=== PATIENT | female | born 1995 | race Caucasian/White ===

== ENCOUNTER → 2017-03-16 | Outpatient (REF) | payer OTHER | LOC: M LAB REF 18:42 | DX: Z34.83 Encounter for supervision of other normal pregnancy, third trimester (principal) ==

== ENCOUNTER 2017-04-04 21:36 | Inpatient (IN) | payer OTHER ==
[2017-04-05 00:22] LABS: BASO % 0.2 % (0.0-1.0); EOS # 0.1 10^3/uL (0.0-0.50); EOS % 1.1 % (0.0-3.0); HEMATOCRIT 27.8 % (36.0-47.0); HEMOGLOBIN 8.3 g/dl (12.0-16.0); IMMATURE GRANULOCYTE # 0.2 10^3/uL (0-0); IMMATURE GRANULOCYTE % 1.4 % (0-0); LYMPH # 1.8 10^3/uL (1.5-6.5); LYMPH % 13.9 % (24.0-44.0); MEAN CORPUSCULAR HEMOGLOBIN 21.7 pg (27.0-33.0); MEAN CORPUSCULAR HGB CONC 29.9 g/dl (32.0-36.5); MEAN CORPUSCULAR VOLUME 72.8 fl (80.0-96.0); MONO # 0.8 10^3/uL (0.0-0.8); MONO % 5.9 % (0.0-5.0); NEUTROPHILS % 77.5 % (36.0-66.0); PLATELET COUNT, AUTOMATED 344 10^3/uL (150-450); RED BLOOD COUNT 3.82 10^6/uL (4.00-5.40); RED CELL DISTRIBUTION WIDTH 16.7 % (11.5-14.5); WHITE BLOOD COUNT 12.9 10^3/uL (4.0-10.0)
[2017-04-05 00:30] LABS: CONTROL LINE INT CTR LINE PRESENT; HIV SCRN NEGATIVE (NEGATIVE); HIV SCRN1 NEGATIVE (NEGATIVE)
[2017-04-05] MEDS: LR 1,000 ML IV ×2 (00:36→14:35)
[2017-04-05] MEDS: OXYTOCIN DRIP 30 UNITS in APPROPRIATE DILUENT 1 EA IV ×2 (00:36→19:48)
[2017-04-05 01:09] LABS: HBSAG L&D NEGATIVE (NEGATIVE)
[2017-04-05 01:43] LABS: AMPHETAMINES URINE REFLEX NEGATIVE (NEGATIVE); BARBITURATES URINE REFLEX NEGATIVE (NEGATIVE); BENZODIAZEPINES URINE REFLEX NEGATIVE (NEGATIVE); CANNABINOIDS URINE REFLEX NEGATIVE (NEGATIVE); COCAINE METABOLITE URINE REFLE NEGATIVE (NEGATIVE); METHADONE URINE REFLEX NEGATIVE (NEGATIVE); OPIATES URINE REFLEX NEGATIVE (NEGATIVE); PHENCYCLIDINE URINE REFLEX NEGATIVE (NEGATIVE)
[2017-04-05 10:20] LABS: RUBELLA IgG QUALITATIVE IMMUNE (IMMUNE)
[2017-04-05] MEDS: PROMETHAZINE INJ 25 MG/ML VIAL (J2550) IV ×2 (12:32→18:23)
[2017-04-05] MEDS: BUTORPHANOL 2 MG/ML INJ (J0595) IV ×2 (12:32→18:23)
[2017-04-05] MEDS ORDERED: OXYTOCIN 30 UNITS IN 0.9% NaCl 500ML IV BAG (J2590) As Ordered (19:03)
[2017-04-05] MEDS ORDERED: METHYLERGONOVINE MALEATE 0.2 MG TAB PO (20:00)
[2017-04-05] MEDS ORDERED: RHOGAM 300 MCG (1500 IU) INJ (J2790) IM (20:00)
[2017-04-05] MEDS ORDERED: MEASLES,MUMPS,RUBELLA VACCINE INJ (MMR-II) (90707) SC (20:00)
[2017-04-05] MEDS: DOCUSATE SODIUM 100 MG CAP PO (22:55)
[2017-04-05] MEDS: DIBUCAINE 1% OINTMENT 30GM TOP (22:55)
[2017-04-05] MEDS: IBUPROFEN 800 MG TAB PO (23:17)
[2017-04-06] MEDS: ACETAMINOPHEN 500 MG TAB PO ×2 (05:12→15:15)
[2017-04-06] MEDS: PRENATAL VITAMINS CHEWABLE TABLET PO (09:28)
[2017-04-06] MEDS: IBUPROFEN 800 MG TAB PO (21:37)
[2017-04-06] MEDS: DOCUSATE SODIUM 100 MG CAP PO (21:37)
[2017-04-07] MEDS: PRENATAL VITAMINS CHEWABLE TABLET PO (07:38)
== END 2017-04-07 10:25 | disposition home or self-care (01) | DRG 560 ==
LOC: M LDO 21:36 → M LDI 23:17 → M OBS 04-05 21:44
PROVIDERS: Obstetrics & Gynecology
PROC: 10E0XZZ Delivery of Products of Conception, External Approach (ICD-10-PCS; principal; 2017-04-05)
DX: O99.334 Smoking (tobacco) complicating childbirth (principal); F17.200 Nicotine dependence, unspecified, uncomplicated; Z37.0 Single live birth; Z3A.39 39 weeks gestation of pregnancy; Z91.19 Patient's noncompliance with other medical treatment and regimen; O09.32 Supervision of pregnancy with insufficient antenatal care, second trimester; O09.31 Supervision of pregnancy with insufficient antenatal care, first trimester

== ENCOUNTER 2017-07-26 00:31 | Emergency (ER) | payer OTHER ==
[2017-07-26] MEDS: PENICILLIN V POTASSIUM 500 MG TAB PO (03:25)
[2017-07-26] MEDS: KETOROLAC 30 MG/ML VIAL (J1885) IM ×2 (03:26→03:30)
[2017-07-26] MEDS: KETOROLAC TROMETHAMINE 10 MG TAB PO (03:37)
== END 2017-07-26 03:38 | disposition home or self-care (01) ==
LOC: M ED 00:31
DX: K08.89 Other specified disorders of teeth and supporting structures (principal); F17.210 Nicotine dependence, cigarettes, uncomplicated
CPT/HCPCS: 99282

== ENCOUNTER 2017-10-13 12:01 | Emergency (ER) | payer OTHER | END 2017-10-13 13:39 | disposition left against medical advice (07) | LOC: M ED 12:01 | DX: R10.9 Unspecified abdominal pain (principal); Z53.21 Procedure and treatment not carried out due to patient leaving prior to being seen by health care provider ==

== ENCOUNTER 2017-11-11 18:41 | Emergency (ER) | payer OTHER | END 2017-11-11 21:37 | disposition left against medical advice (07) | LOC: M ED 18:41 | DX: Z53.29 Procedure and treatment not carried out because of patient's decision for other reasons (principal) ==

== ENCOUNTER 2017-11-12 02:12 | Emergency (ER) | payer OTHER ==
[2017-11-12 03:56] LABS: BASO % 0.4 % (0.0-1.0); EOS # 0.1 10^3/uL (0.0-0.50); EOS % 1.4 % (0.0-3.0); HEMATOCRIT 34.6 % (36.0-47.0); HEMOGLOBIN 10.4 g/dl (12.0-15.5); IMMATURE GRANULOCYTE % 0.4 % (0-3.0); LYMPH # 2.5 10^3/uL (1.5-6.5); LYMPH % 24.2 % (24.0-44.0); MEAN CORPUSCULAR HEMOGLOBIN 21.8 pg (27.0-33.0); MEAN CORPUSCULAR HGB CONC 30.1 g/dl (32.0-36.5); MEAN CORPUSCULAR VOLUME 72.5 fl (80.0-96.0); MONO # 0.6 10^3/uL (0.0-0.8); MONO % 6.2 % (0.0-5.0); NEUTROPHILS # 6.9 10^3/uL (1.8-7.7); NEUTROPHILS % 67.4 % (36.0-66.0); PLATELET COUNT, AUTOMATED 335 10^3/uL (150-450); RED BLOOD COUNT 4.77 10^6/uL (4.00-5.40); WHITE BLOOD COUNT 10.3 10^3/uL (4.0-10.0)
[2017-11-12 04:01] LABS: CONTROL LINE HCG INT CTR LINE PRESENT; HCG, SERUM QUALITATIVE NEGATIVE (NEGATIVE)
[2017-11-12 04:08] LABS: ALBUMIN 3.9 GM/DL (3.2-5.2); ALBUMIN/GLOBULIN RATIO 0.91 (1.00-1.93); ALKALINE PHOSPHATASE 88 U/L (45-117); ALT/SGPT 32 U/L (12-78); ANION GAP 11 MEQ/L (8-16); AST/SGOT 52 U/L (7-37); BILIRUBIN,DIRECT < 0.1 MG/DL (0.0-0.2); BILIRUBIN,TOTAL 0.4 MG/DL (0.2-1.0); BLOOD UREA NITROGEN 6 MG/DL (7-18); CALCIUM LEVEL 8.8 MG/DL (8.5-10.1); CARBON DIOXIDE LEVEL 25 MEQ/L (21-32); CHLORIDE LEVEL 105 MEQ/L (98-107); CREATININE FOR GFR 0.74 MG/DL (0.55-1.30); GLOMERULAR FILTRATION RATE > 60.0 (>60); GLUCOSE, FASTING 100 MG/DL (70-100); LIPASE 173 U/L (73-393); POTASSIUM SERUM 3.6 MEQ/L (3.5-5.1); SODIUM LEVEL 141 MEQ/L (136-145); TOTAL PROTEIN 8.2 GM/DL (6.4-8.2)
[2017-11-12] MEDS: ONDANSETRON 4MG/2ML VIAL (J2405) IV (04:38)
[2017-11-12] MEDS: MORPHINE 4 MG/ML 1ML VIAL/SYRINGE (J2270) IV (04:39)
== END 2017-11-12 06:49 | disposition home or self-care (01) ==
LOC: M ED 02:12
DX: K80.70 Calculus of gallbladder and bile duct without cholecystitis without obstruction (principal); R11.0 Nausea
CPT/HCPCS: J2270

== ENCOUNTER 2017-11-29 07:45 | Day surgery (SDC) | payer OTHER ==
[~2017-11-29 07:45] MED LIST: KETOROLAC 60 MG/2 ML VIAL (J1885) As Ordered; LIDOCAINE 2% INJ 100 MG/5 ML SDV (FOR ANES.) As Ordered; ONDANSETRON 4MG/2ML VIAL (J2405) As Ordered; PROPOFOL 200 MG/20 ML VIAL As Ordered; ROCURONIUM BROMIDE 50 MG/5 ML VIAL As Ordered; dexameTHASONE 4 MG/ML 1ML VIAL (J1100) As Ordered
[2017-11-29] MEDS: LR 1,000 ML IV ×2 (08:28→10:52)
[2017-11-29 08:39] LABS: CONTROL LINE UCG INT CTR LINE PRESENT; URINE PREG TEST NEGATIVE (NEGATIVE)
[2017-11-29] MEDS ORDERED: MIDAZOLAM INJ 2 MG/2 ML VIAL (J2250) As Ordered (08:46)
[2017-11-29] MEDS ORDERED: fentaNYL 250 MCG/5 ML INJECTION (J3010) As Ordered (08:46)
[2017-11-29] MEDS: AMPICILLIN SOD/SULBACTAM SOD 3 GM in D5W MINI-BAG PLUS 100 ML IV (09:14)
[2017-11-29] MEDS: LIDOCAINE 1% SDV INJ 30 ML VIAL As Ordered (10:38)
[2017-11-29] MEDS ORDERED: NEOSTIGMINE 10 MG/10 ML VIAL (J2710) As Ordered (10:38)
[2017-11-29] MEDS: BUPIVACAINE HCL 0.25% 30 ML VIAL As Ordered (10:38)
[2017-11-29] MEDS ORDERED: GLYCOPYRROLATE INJ 0.2 MG/ML 2 ML VIAL As Ordered ×2 (10:38)
[2017-11-29] MEDS ORDERED: fentaNYL 100 MCG/2 ML INJECTION (J3010) As Ordered (11:13)
[2017-11-29] MEDS ORDERED: ONDANSETRON 4MG/2ML VIAL (J2405) As Ordered (11:13)
[2017-11-29] MEDS ORDERED: PERCOCET 5MG/325MG TAB As Ordered (11:13)
[2017-11-29] MEDS: fentaNYL 100 MCG/2 ML INJECTION (J3010) IV ×4 (11:15→11:30)
[2017-11-29] MEDS ORDERED: NORCO, ANEXSIA 5/325MG TABLET (HYDROcodone/ACETAMINOPHEN) PO ×2 (11:15)
[2017-11-29] MEDS: ONDANSETRON 4MG/2ML VIAL (J2405) IV (11:15)
[2017-11-29] MEDS: PERCOCET 5MG/325MG TAB PO ×2 (11:15→12:12)
[2017-11-29] MEDS ORDERED: HYDROMORPHONE HCL 0.5 MG/ 0.5 ML SYRINGE (J1170 PER 1) IV (11:30)
[2017-11-29] MEDS ORDERED: ONDANSETRON 4MG/2ML VIAL (J2405) IV (11:30)
[2017-11-29] MEDS ORDERED: KETOROLAC 30 MG/ML VIAL (J1885) IV (13:00)
== END 2017-11-29 13:42 | disposition home or self-care (01) ==
LOC: M SDC 07:45
DX: K80.18 Calculus of gallbladder with other cholecystitis without obstruction (principal); F17.210 Nicotine dependence, cigarettes, uncomplicated; E04.1 Nontoxic single thyroid nodule
CPT/HCPCS: 47562

== ENCOUNTER → 2018-09-22 | Outpatient (REF) | payer OTHER ==
[~2018-09-22] MED LIST changes: +ANUS2.5C2 TOP; +DOCU10CA PO; +HYOS1TAB PO; +IBUP-1114 PO; +IBUP600T42 PO; -KETOROLAC 60 MG/2 ML VIAL (J1885) As Ordered; -LIDOCAINE 2% INJ 100 MG/5 ML SDV (FOR ANES.) As Ordered; +MAPA500T2 PO; +MOM30SS PO; +NUPE1OIN2 TOP; -ONDANSETRON 4MG/2ML VIAL (J2405) As Ordered; +PENI250T57 PO; +PRENTAB7 PO; +PRENTAB9 PO; -PROPOFOL 200 MG/20 ML VIAL As Ordered; -ROCURONIUM BROMIDE 50 MG/5 ML VIAL As Ordered; -dexameTHASONE 4 MG/ML 1ML VIAL (J1100) As Ordered
== END ==
LOC: M LAB REF 17:32
PROVIDERS: ATTEND Advanced Practice Midwife
DX: Z12.4 Encounter for screening for malignant neoplasm of cervix (principal)

== ENCOUNTER → 2018-10-03 | Outpatient (CLI) | payer MEDICAID, OTHER, SELFPAY ==
--- NOTE | 2018-10-03 10:44 | REP ---
Clinical: Anatomical evaluation. Comparison: None . Findings: Examination demonstrates a single live intrauterine in cephalic presentation. motion is identified by technologist. Placenta is noted anterior and grade zero without evidence for placenta previa or abruption. Amniotic fluid volume is normal. Cervix measures 4.9 cm in length and appears closed. No evidence for nuchal cord. Gestational age by LMP 26 weeks 4 days with ARACELIS 01/05/1990 . Gestational age by current measurements 26 weeks 5 days with ARACELIS 01/04/2019 . FHR equals 133 beats per minute. BPD 6.6 cm 26 weeks 3-day HC 24.0 cm 26 weeks 0 days AC 22.3 cm 26 weeks 5 days FL 5.0 cm 27 weeks 0 days HL 4.7 cm 27 weeks 4 days HC/AC ratio 1.08 Estimated weight 975 grams ( 46 percentile). Anatomical assessment demonstrates normal structures including cranium, choroid plexus, cavum, cerebellum/posterior fossa, lungs, four-chamber heart/ventricular outflow tracts, diaphragm, stomach, cord insertion/three-vessel cord, kidneys/bladder, spine, and extremities. Impression: Single live intrauterine in cephalic presentation demonstrating appropriate interval growth. Limited evaluation of the facial features. Remainder of the anatomical assessment is complete and normal. Electronically Signed by Aryan Russo MD 10/03/2018 10:35 A
== END ==
LOC: M RAD 09:52
PROVIDERS: ATTEND Advanced Practice Midwife
DX: Z34.82 Encounter for supervision of other normal pregnancy, second trimester (principal); Z3A.25 25 weeks gestation of pregnancy

== ENCOUNTER → 2018-12-23 | Outpatient (REF) | payer OTHER | LOC: M LAB REF 13:00 | PROVIDERS: ATTEND Advanced Practice Midwife | DX: Z34.83 Encounter for supervision of other normal pregnancy, third trimester (principal) ==

== ENCOUNTER 2019-01-02 06:05 | Inpatient (IN) | payer OTHER ==
[2019-01-02] VITALS (29 sets, daily range): BP systolic 92–141; BP diastolic 50–79
[~2019-01-02] VITALS: Ht 160 cm; Wt 89.4 kg
[2019-01-02] MEDS ORDERED: OXYTOCIN DRIP 30 UNITS in IV 1 EA IV SCH ×2 (08:00→19:56)
[2019-01-02 08:08] LABS: HEMATOCRIT 28.1 % (36.0-47.0); HEMOGLOBIN 8.1 g/dl (12.0-15.5); MEAN CORPUSCULAR HEMOGLOBIN 20.6 pg (27.0-33.0); MEAN CORPUSCULAR HGB CONC 28.8 g/dl (32.0-36.5); MEAN CORPUSCULAR VOLUME 71.3 fl (80.0-96.0); PLATELET COUNT, AUTOMATED 281 10^3/uL (150-450); RED BLOOD COUNT 3.94 10^6/uL (4.00-5.40); WHITE BLOOD COUNT 8.9 10^3/uL (4.0-10.0)
--- NOTE | 2019-01-02 08:17 | HPEPDOC ---
Obstetrical History & Physical General Date of Admission Jan 02, 2019 at 06:05 Primary Care Physician: NANCY LE CNM History of Present Illness Patient is a 23-year-old female who is a at 39.5 weeks gestation with an ARACELIS of 01/04/19 based off of her LMP and consistent with her second trimester ultrasound. She initiated care in her second trimester. Her care has been complicated by minimal care-4 visits, being a smoker, and non- compliance with care. Patient never got any of her labs done. She presents for IOL for social reasons. She reports occasional contractions and active movement. She denies leaking of fluid or vaginal bleeding. Chief Complaint: Induction of labor Information Provided By: Patient Age: 23 : 4 Term: 3 Pre-term: 0 Abortions: 0 Livin Care Care: Limited Care Dating Final EDC: Jan 04, 2019 Final EDC by: LMP LMP: Mar 30, 2018 EGA at Admission: 39.5 Antepartum Course Height (inches): 63 Pre- weight (lbs.): 164 Admission Weight (lbs.): 197 Change in Weight (lbs.): 33 Past Medical History Past Obstetrical History #1: Past Obstetrical History: Primgravida Gestation: 41 Type of Delivery: Spontaneous Vaginal Del. (December 2013) Sex of : Male (8 lbs 15 oz) Complications: No Past Obstetrical History #2: Past Obstetrical History: Multigravida Gestation: 39 Type of Delivery: Spontaneous Vaginal Del. (January 2016) Sex of : Female (6 lbs) Complications: No Past Obstetrical History #3: Past Obstetrical History: Multigravida Gestation: 40 Type of Delivery: Spontaneous Vaginal Del. 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 BREAST: . ABDOMEN: Gravid and non-tender to touch. FETUS: Is vertex (VTX) by sterile vaginal examination (SVE), fetus is vertex (VTX) by Jesu. HEART RATE: Regular rate and rhythm. LUNGS: Clear to auscultation (CTA). EXTREMITIES: No edema. No clonus. Deep tendon reflexes (DTRs) + . Vital Signs/I&O Vital Signs Date Time Temp Pulse Resp B/P (MAP) Pulse Ox O2 Delivery O2 Flow Rate FiO2 01/02/19 07:42 75 18 114/56 (75) 01/02/19 06:29 97.6 Pertinent Laboratoy Data Group B Streptococcus: Negative Vaginal Examination Dilation: 3 cm Effacement: other (75%) Station: -1 Cervical Consistency: Soft Cervical Position: Middle Presentation: Cephalic presentation Position: Vertex (occiput) Assessment Heart Rate (FHR): 130 Variability: Moderate Accelerations: Positive Decelerations: None Tocometer Contractions: Yes Frequency: every 2-5 min. Assessment/Plan Assessment IUP at 39.5 weeks limited care Category I FHR tracing GBS negative IOL-elective Plan Admit to L&D. OOB ad karen. Diet: clears once IV Pitocin started. Group B Streptococcus (GBS) negative. Labs and intravenous (IV) per unit protocol. labs also obtained. Counseled on Pitocin and induction of labor IOL. Lactated Ringers (LR): 125 mL/hr. Anticipate cervical change and . NANCY LE CNM Jan 02, 2019 08:17
[2019-01-02] MEDS: LR 1,000 ML IV SCH ×2 (08:53→15:10)
[2019-01-02] MEDS ORDERED: LR 1,000 ML IV ONE (10:15)
[2019-01-02 10:47] LABS: HEPATITIS C VIRUS ABY INDEX 0.1 INDEX (<0.8); HIV 1&2 SCREEN CENTAUR NEGATIVE (NEGATIVE); RUBELLA IgG QUALITATIVE IMMUNE (IMMUNE)
[2019-01-02] MEDS ORDERED: FENTANYL 2MCG/ML ROPIVACAINE 0.2% IN 0.9% NACL 100ML IVBAG As Ordered ONE (12:19)
[2019-01-02] MEDS ORDERED: EPIDURAL/PCA KEYS XX PRN (13:00)
[2019-01-02] MEDS ORDERED: FENTANYL/ROPIVACAINE/NACL BAG 100 ML EPIDURAL SCH (13:00)
[2019-01-02] MEDS ORDERED: ONDANSETRON 4MG/2ML VIAL (J2405) IV PRN (13:00)
[2019-01-02] MEDS ORDERED: diphenhydrAMINE INJ 50MG/ML VIAL (J1200) IV PRN (13:00)
[2019-01-02] MEDS ORDERED: EPIDURAL COMMENT XX SCH (13:00)
[2019-01-02] MEDS ORDERED: LACTATED RINGER'S 1000 ML IV PRN (13:00)
[2019-01-02] MEDS ORDERED: REFRIGERATOR IV KEYS XX PRN (13:00)
[2019-01-02] MEDS ORDERED: NALOXONE INJ 0.4 MG/1 ML VIAL (J2310) IV PRN (13:00)
--- NOTE | 2019-01-02 14:12 | IPNPDOC ---
Obstetrical Progress Note Date of Service Jan 02, 2019 Subjective Patient reports she is comfortable with her epidural. Objective Vital Signs Date Time Temp Pulse Resp B/P (MAP) Pulse Ox O2 Delivery O2 Flow Rate FiO2 01/02/19 07:42 75 18 114/56 (75) 01/02/19 06:29 97.6 Assessment Heart Rate (FHR): 120 Variability: Moderate Accelerations: Positive Decelerations: None Heart Rate Tracing: Category I Tocometer Contractions: Yes Frequency: regular Sterile Vaginal Examination Dilation: 4 cm Effacement (%): 90% Station: -1 Cervical Consistency: Soft Cervical Position: Anterior Postion/Presentation: Cephalic presentation Assessment and Plan EGA at Admission: 39.5 Status: Reassuring Group B Streptococcus: Negative Anticipate: Vaginal Delivery Additional Comments IV Pitocin is at 16 mu/min. AROM to a moderate amount of clear fluid. NANCY LE CNM Jan 02, 2019 14:12
[2019-01-02] MEDS: ePHEDrine SULFATE 25 MG/5 ML(5MG/ML) SYRINGE IV PRN ×2 (17:17→17:22)
[2019-01-02] MEDS ORDERED: RHOGAM 300 MCG (1500 IU) INJ (J2790) IM SCH (20:00)
[2019-01-02] MEDS ORDERED: IBUPROFEN 800 MG TAB PO PRN (20:00)
[2019-01-02] MEDS ORDERED: DOCUSATE SODIUM 100 MG CAP PO PRN (20:00)
[2019-01-02] MEDS ORDERED: ANUSOL HC CREAM 30GM TOP PRN (20:00)
[2019-01-02] MEDS ORDERED: METHYLERGONOVINE MALEATE 0.2 MG TAB PO PRN (20:00)
[2019-01-02] MEDS ORDERED: ACETAMINOPHEN TAB 650MG DOSE (2X325MG) PO PRN (20:00)
[2019-01-02] MEDS ORDERED: DIBUCAINE 1% OINTMENT 30GM TOP PRN (20:00)
[2019-01-02] MEDS ORDERED: MEASLES,MUMPS,RUBELLA VACCINE INJ (MMR-II) (90707) SC SCH (20:00)
--- NOTE | 2019-01-02 20:01 | DNPDOC ---
[facility] Delivery Note Delivery Note DATE OF DELIVERY: 01/02/2019 at 1925 PREDELIVERY DIAGNOSIS: 39-5/7 weeks' gestation and labor. POST DELIVERY DIAGNOSIS: Delivered. PROCEDURE: Spontaneous vaginal delivery. Provider: Nancy Haywood CNM, CORNELIUS ANESTHESIA: epidural. ESTIMATED BLOOD LOSS: 350 mL. FINDINGS: 8 pounds 5 ounces; 3784 grams, female , Score 9/9, minimal care. DELIVERY SUMMARY: Patient is a 23-year-old female who is now a at 39.5 weeks gestation who presented for an IOL. She received IV Pitocin for her induction and requested an epidural for pain management. The patient progressed to fully dilated at 1922 and pushed to a living female in the SERGIO position with restitution to ROT at 1925. The anterior shoulder delivered with ease and the corpus immediately followed. The baby was placed on the maternal abdomen active and crying. The cord was clamped after pulsation ceased and cut by the FOB. A 3- vessel cord was noted. The placenta delivered spontaneously and intact at 1936. uterine hemostasis was achieved via rapid infusion of IV Pitocin and fundal massage. The vagina, cervix, and perineum were inspected and found to have bilateral labial abrasions that were not repaired. The mom plans to formula feed. They are naming her Bevedvin Kline. Both mom and baby are in stable condition. All counts of instruments and sponges are correct. NANCY HAYWOOD CNM Jan 02, 2019 20:01
[2019-01-02] MEDS: IBUPROFEN 600 MG TAB PO PRN (22:29)
[2019-01-03 06:08] VITALS: BP 105/55
[2019-01-03] MEDS: ACETAMINOPHEN 500 MG TAB PO PRN ×2 (06:13→19:32)
--- NOTE | 2019-01-03 06:38 | IPNPDOC ---
Progress Note Date of Service: Jan 03, 2019 Day#: 1 Progress Note SUBJECT: Reports her pain has been managed. She has been ambulating, voiding spontaneously without issue and tolerating regular diet. OBJECTIVE: VITAL SIGNS: Within normal limits, afebrile. Alert and oriented times three. Breath sounds clear to auscultation. Heart rate: Regular rate and rhythm, no murmurs, rubs or gallops. Abdomen: Fundus firm at U. Soft, NTTP. Moderate lochia. ASSESSMENT: Day 1 PLAN: 1. Continue supportive nursing care. 2. Anticipate discharge tomorrow. VS, I&O, 24H, Fishbone Vital Signs/I&O Vital Signs Date Time Temp Pulse Resp B/P (MAP) Pulse Ox O2 Delivery O2 Flow Rate FiO2 01/03/19 06:08 98.7 77 18 105/55 (72) 01/02/19 22:35 100 Room Air I&O- Last 24 Hours up to 6 AM 01/03/19 06:00 Intake Total 3705 ml Output Total 2075 ml Balance 1630 ml Laboratory Data 24H LABS Laboratory Tests 2 01/02/19 07:58: Nucleated Red Blood Cells % (auto) 0.2H, Syphilis Serology NONREACTIVE, Hepatitis B Surface Antigen (Rapid) NEGATIVEL, Hepatitis C Antibody Index 0.1, HIV Antigen/Antibody Combo Qual NEGATIVE, Rubella Immunity Screen IMMUNE 01/02/19 14:59: Serology Scanned Report Hepatitis B Testing CBC/BMP Laboratory Tests 01/02/19 07:58 NANCY LE CNM Jan 03, 2019 06:38
[2019-01-03] MEDS: PRENATAL VITAMINS CHEWABLE TABLET PO SCH (10:27)
[2019-01-03] MEDS: FERROUS SULFATE 325MG TAB PO SCH (10:27)
[2019-01-03] MEDS: IBUPROFEN 600 MG TAB PO PRN (15:36)
[2019-01-03 18:10] VITALS: BP 103/52
[2019-01-04 06:19] VITALS: BP 115/57
[2019-01-04] MEDS: FERROUS SULFATE 325MG TAB PO SCH (09:00)
[2019-01-04] MEDS: PRENATAL VITAMINS CHEWABLE TABLET PO SCH (09:00)
[2019-01-04] MEDS ORDERED: IBUP80TA PO (09:18)
== END 2019-01-04 11:00 | disposition home or self-care (01) | DRG 560 ==
LOC: M LDI 06:05 → M OBS 22:06
PROVIDERS: ADMIT Obstetrics & Gynecology; ATTEND Obstetrics & Gynecology
PROC: 10E0XZZ Delivery of Products of Conception, External Approach (ICD-10-PCS; principal; 2019-01-02)
PROC: 3E033VJ Introduction of Other Hormone into Peripheral Vein, Percutaneous Approach (ICD-10-PCS; 2019-01-02)
DX: O99.334 Smoking (tobacco) complicating childbirth (principal); F17.200 Nicotine dependence, unspecified, uncomplicated; Z37.0 Single live birth; Z3A.39 39 weeks gestation of pregnancy; O09.30 Supervision of pregnancy with insufficient antenatal care, unspecified trimester; Z91.19 Patient's noncompliance with other medical treatment and regimen

== ENCOUNTER → 2020-05-14 | Outpatient (REF) | payer OTHER ==
[~2020-05-14] MED LIST changes: +IBUP80TA PO
== END ==
LOC: M PLALAB 10:08
PROVIDERS: ATTEND Obstetrics & Gynecology
DX: O09.33 Supervision of pregnancy with insufficient antenatal care, third trimester (principal)

== ENCOUNTER → 2020-06-25 | Outpatient (CLI) | payer OTHER ==
--- NOTE | 2020-06-25 09:53 | REP ---
INDICATION: ANATOMY COMPARISON: None. TECHNIQUE: Transabdominal obstetrical ultrasound with color Doppler evaluation. FINDINGS: Examination demonstrates a single live intrauterine in cephalic presentation. motion is identified by technologist. Placenta is noted posterior/fundal and grade 2 without evidence for placenta previa or abruption. Amniotic fluid volume is normal. Cervix measures 3.6 cm in length and appears closed.. Gestational age by current measurements 34 weeks 5 days with ARACELIS 08/01/2020. FHR equals 152 beats per minute. BPD: 8.2 cm at 33 weeks 1 day HC: 30.3 cm at 33 weeks 4 days AC: 30.9 cm at 34 weeks 6 days FL: 7.1 cm at 36 weeks 1 day HL: 6.2 cm at 35 weeks 6 days HC/AC: 0.98 Estimated weight 2544 grams (51stpercentile). PAKO: 8.7 cm Anatomical assessment demonstrates normal structures including cranium, choroid plexus, cavum, cerebellum/posterior fossa, facial features, lungs, four-chamber heart/ventricular outflow tracts, diaphragm, stomach, cord insertion/three-vessel cord, kidneys/bladder. IMPRESSION: Single live advanced gestation in cephalic presentation demonstrating appropriate estimated weight. No gross abnormalities are identified. Anatomical assessment is limited due to advanced age. <Electronically signed by Aryan Russo > 06/25/20 0948
== END ==
LOC: M WHC 08:00
PROVIDERS: ATTEND Obstetrics & Gynecology
DX: O09.33 Supervision of pregnancy with insufficient antenatal care, third trimester (principal); Z3A.34 34 weeks gestation of pregnancy

== ENCOUNTER → 2020-07-08 | Outpatient (REF) | payer OTHER | LOC: M PLALAB 14:27 | PROVIDERS: ATTEND Obstetrics & Gynecology | DX: Z36.89 Encounter for other specified antenatal screening (principal); Z3A.36 36 weeks gestation of pregnancy ==

== ENCOUNTER → 2020-07-10 | Outpatient (REF) | payer OTHER | LOC: M SFHCWAGY 12:44 | PROVIDERS: ATTEND Obstetrics & Gynecology | DX: Z34.83 Encounter for supervision of other normal pregnancy, third trimester (principal); Z3A.36 36 weeks gestation of pregnancy ==

== ENCOUNTER 2020-07-29 20:42 | Outpatient (CLI) | payer OTHER ==
[~2020-07-29] VITALS: Ht 160 cm; Wt 99.0 kg
[2020-07-29 21:01] VITALS: BP 122/63
[2020-07-29] MEDS ORDERED: PRENTAB9 PO (21:04)
--- NOTE | 2020-07-29 22:02 | IPNPDOC ---
Text Note Date of Service The patient was seen on 07/29/20. NOTE Subjective: Krystyna is a 25-year-old female who is a with an ARACELIS of 08/01/20 based off of a 3rd trimester scan. She initiated care at 30 weeks gestation at [facility]. Her has been complicated by being late to care and being a smoker. She presents to L&D with complaints of a small gush of fluid that was clear. She denies any further leaking of fluid since the small amount that she describes. She denies contractions or vaginal bleeding. She reports active movement. Objective: FHR: 130, moderate variability, positive accelerations, no decelerations. [place]: occasional contractions General: Does not appear to be in any distress Respiratory: regular rate without use of accessory muscles Abdomen: gravid, soft without SSE: pad is dry. no pooling of fluid in the vagina, normal physiologic discharge, negative nitrazine and negative fern SCE: 4/60/-2, anterior, soft, no show Bedside ultrasound: cephalic presentation with PAOK about 8 cm. Assessment: IUP at 39.3 weeks gestation, rule out rupture of membranes Plan: Patient offered to stay for IOL. She declined. She hasn't gotten any labs done. Obtained today. Reviewed access to care, kick count, labor signs and danger signs to report. Patient instructed to make appointment for next week before her induction. VS,Fishbone, I+O VS, Fishbone, I+O Vital Signs Date Time Temp Pulse Resp B/P (MAP) Pulse Ox O2 Delivery O2 Flow Rate FiO2 07/29/20 21:01 77 122/63 (82) 07/29/20 21:01 98.7 16 Room Air NANCY LE CNM July 29, 2020 22:02
[2020-07-29 22:33] LABS: BASO % 0.2 % (0.0-1.0); EOS # 0.1 10^3/uL (0.0-0.5); HEMATOCRIT 30.3 % (36.0-47.0); HEMOGLOBIN 8.6 g/dl (12.0-15.5); LYMPH # 1.5 10^3/uL (1.5-5.0); LYMPH % 14.8 % (24.0-44.0); MEAN CORPUSCULAR HEMOGLOBIN 20.7 pg (27.0-33.0); MEAN CORPUSCULAR HGB CONC 28.4 g/dl (32.0-36.5); MEAN CORPUSCULAR VOLUME 72.8 fl (80.0-96.0); MONO # 0.5 10^3/uL (0.0-0.8); MONO % 4.5 % (2.0-8.0); NEUTROPHILS % 78.7 % (36.0-66.0); PLATELET COUNT, AUTOMATED 292 10^3/uL (150-450); RED BLOOD COUNT 4.16 10^6/uL (4.00-5.40); WHITE BLOOD COUNT 10.2 10^3/uL (4.0-10.0)
[2020-07-30 10:02] LABS: HEPATITIS C VIRUS ABY INDEX 0.1 INDEX (<0.8); HIV 1&2 SCREEN CENTAUR NEGATIVE (NEGATIVE)
== END 2020-07-29 22:30 | disposition home or self-care (01) ==
LOC: M LDO 20:42
PROVIDERS: ATTEND Advanced Practice Midwife
DX: O26.893 Other specified pregnancy related conditions, third trimester (principal); Z3A.39 39 weeks gestation of pregnancy

== ENCOUNTER 2020-08-09 02:05 | Inpatient (IN) | payer OTHER ==
[2020-08-09] VITALS (11 sets, daily range): BP systolic 105–145; BP diastolic 55–67
[~2020-08-09] VITALS: Ht 160 cm; Wt 89.4 kg
[2020-08-09] MEDS ORDERED: LACTATED RINGER'S 1000 ML IV STA (03:03)
[2020-08-09] MEDS ORDERED: OXYTOCIN DRIP 30 UNITS in IV 1 EA IV PRN ×6 (03:05)
[2020-08-09] MEDS ORDERED: METHYLERGONOVINE MALEATE 0.2 MG/ML VIAL (J2210) IM PRN (03:05)
[2020-08-09] MEDS ORDERED: CARBOPROST TROMETHAMINE 250 MCG/ML AMP IM PRN (03:05)
[2020-08-09] MEDS ORDERED: LR 1,000 ML IV SCH (03:05)
[2020-08-09] MEDS ORDERED: OXYTOCIN INJ 10 UNITS/ML VIAL (J2590) IV PRN (03:05)
[2020-08-09] MEDS ORDERED: TRANEXAMIC ACID INJection 1,000 MG in NS 100 ML IV PRN (03:05)
[2020-08-09] MEDS ORDERED: OXYTOCIN INJ 10 UNITS/ML VIAL (J2590) IM PRN (03:05)
[2020-08-09] MEDS ORDERED: LIDOCAINE 1% MDV 20ML VIAL INFIL PRN (03:05)
--- NOTE | 2020-08-09 03:16 | HPEPDOC ---
Obstetrical History & Physical General Date of Admission Aug 09, 2020 at 02:27 History of Present Illness 25-year-old G5, P 4004 at 41+1 weeks gestation. Presents with frequent, painful uterine contractions over the past several hours. Denies any loss of fluid or vaginal bleeding. Reports regular movement. ROS: no GAMEZ, cp, sob, fever/chills/nausea/vomiting. course:. Late to care 30 weeks', tobacco use 6-10 cigarettes per day, obesity PMH: Thyroid SH: Cystectomy. 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 15 oz. Sochx: No tobacco, alcohol or drug use FamHx: Cancer, diabetes, heart disease, hypertension labs: Blood type O+, antibody screen negative, HepBsAg neg, HIV neg, rubella immune, Hep C antibody negative, RPR nonreactive, CT/GC neg, urine culture negative, 1 hour glucose challenge test not done, GBS negative. imaging: no anomalies or placental abnormalities Past Medical History Allergies Coded Allergies: No Known Allergies (Unverified , 11/26/17) Medications Scheduled No.137/Iron/Folic Acd ( Vitamin Tablet) 1 Each Tablet, 1 TAB PO DAILY Physical Examination Physical Examination GENERAL: Alert and oriented times three. ABDOMEN: Gravid and non-tender to touch. FETUS: Is vertex (VTX) by sterile vaginal examination (SVE), fetus is vertex (VTX) by Jesu. HEART RATE: Regular rate and rhythm. LUNGS: Clear to auscultation (CTA). EXTREMITIES: No edema. No clonus. SVE: 5-6cm, 100%, -3, cephalic, intact EFM: Cat I Bowman: ctxs every 3-5 min. Vital Signs/I&O Vital Signs Date Time Temp Pulse Resp B/P (MAP) Pulse Ox O2 Delivery O2 Flow Rate FiO2 08/09/20 02:17 97.9 88 18 08/09/20 02:09 124/59 (80) Laboratory Data 24H LABS Laboratory Tests 2 08/09/20 02:29: Serology Scanned Report Hepatitis B Testing Assessment/Plan Assessment 25-year-old G5, P4, 004 at 41 weeks and 1 day gestation in active labor and intact membranes. Reassuring maternal and status. 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 Labs and intravenous (IV) per unit protocol. Anticipate [normal spontaneous delivery ()]. C-S as appropriate. ZAINAB WOODY DO Aug 09, 2020 03:16
[2020-08-09 03:32] LABS: HEMATOCRIT 31.3 % (36.0-47.0); MEAN CORPUSCULAR HEMOGLOBIN 20.8 pg (27.0-33.0); MEAN CORPUSCULAR HGB CONC 28.8 g/dl (32.0-36.5); MEAN CORPUSCULAR VOLUME 72.5 fl (80.0-96.0); PLATELET COUNT, AUTOMATED 300 10^3/uL (150-450); RED BLOOD COUNT 4.32 10^6/uL (4.00-5.40); WHITE BLOOD COUNT 11.2 10^3/uL (4.0-10.0)
[2020-08-09] MEDS ORDERED: PROMETHAZINE INJ 25 MG/ML VIAL (J2550) IV ONE (04:00)
[2020-08-09] MEDS ORDERED: BUTORPHANOL 2 MG/ML INJ (J0595) IV ONE (04:00)
[2020-08-09] MEDS ORDERED: OXYTOCIN 30 UNITS IN 0.9% NaCl 500ML IV BAG (J2590) As Ordered ONE (04:11)
[2020-08-09] MEDS ORDERED: MEASLES,MUMPS,RUBELLA VACCINE INJ (MMR-II) (90707) SC SCH (04:25)
[2020-08-09] MEDS ORDERED: METHYLERGONOVINE MALEATE 0.2 MG TAB PO PRN (04:25)
[2020-08-09] MEDS ORDERED: DOCUSATE SODIUM 100MG CAPSULE PO PRN (04:25)
[2020-08-09] MEDS ORDERED: ACETAMINOPHEN 500 MG TAB PO PRN (04:25)
[2020-08-09] MEDS ORDERED: OXYTOCIN DRIP 30 UNITS in IV 1 EA IV SCH (04:25)
[2020-08-09] MEDS ORDERED: RHOGAM 300 MCG (1500 IU) INJ (J2790) IM SCH (04:25)
[2020-08-09] MEDS ORDERED: IBUPROFEN 800 MG TAB PO PRN (04:25)
[2020-08-09] MEDS ORDERED: ACETAMINOPHEN TAB 650MG DOSE (2X325MG) PO PRN (04:25)
[2020-08-09] MEDS ORDERED: DIBUCAINE 1% OINTMENT 30GM TOP PRN (04:25)
[2020-08-09] MEDS ORDERED: IBUPROFEN 600MG TAB PO PRN (04:25)
--- NOTE | 2020-08-09 04:27 | DNPDOC ---
[facility] Delivery Note Delivery Note DATE OF DELIVERY: 08/09/2020 TIME OF DELIVERY: 0409 Spontaneous vaginal delivery. 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 None ESTIMATED BLOOD LOSS:. 200 mL. FINDINGS: 7 pound 3 ounce (3250 g) female , Score, 8 and 8. DELIVERY SUMMARY: The active phase and second stage of labor progressed in normal fashion. The head delivered in the ALEJANDRA position, and restituted LOT. No nuchal cord was noted. The anterior shoulder delivered with gentle downward guidance and the remainder of the body delivered with ease. The baby was placed on the patient's chest. Delayed cord clamping occurred for approximately 1 minute. The cord was then doubly clamped and cut. IV Pitocin was bolused to actively manage the third stage of labor. The placenta delivered intact without any difficulty within 10 minutes of delivery. The uterine fundus was noted to be firm and 2 cm below the umbilicus. The cervix, vagina, vulva and perineum were inspected. No lacerations. Excellent hemostasis was noted. Sponge, needle and instrument counts were correct per protocol. DO ISAIAH Pierson JONATHAN R. DO Aug 09, 2020 04:27
[2020-08-09] MEDS ORDERED: PRENATAL VITAMINS CHEWABLE TABLET PO SCH (09:00)
[2020-08-09] MEDS ORDERED: NICOTINE POLACRILEX 2 MG GUM PO PRN (16:30)
== END 2020-08-09 20:55 | disposition home or self-care (01) | DRG 560 ==
LOC: M LDO 02:05 → M LDI 02:27 → M OBS 08:39
PROVIDERS: ADMIT Obstetrics & Gynecology; ATTEND Obstetrics & Gynecology
PROC: 10E0XZZ Delivery of Products of Conception, External Approach (ICD-10-PCS; principal; 2020-08-09)
DX: O48.0 Post-term pregnancy (principal); Z37.0 Single live birth; Z3A.41 41 weeks gestation of pregnancy; F17.210 Nicotine dependence, cigarettes, uncomplicated; E66.9 Obesity, unspecified; O99.214 Obesity complicating childbirth; O99.334 Smoking (tobacco) complicating childbirth